=== PATIENT | female | born 1980 | race Caucasian/White ===

== ENCOUNTER → 2017-03-23 | Outpatient (CLI) | payer OTHER ==
--- NOTE | 2017-03-23 12:56 | RAD ---
Right knee, 2 views, 03/23/2017: History: Knee swelling No fracture or dislocation is identified. No significant arthritic change is seen. There is soft tissue prominence in the suprapatellar bursa region suggesting a large joint effusion. IMPRESSION: 1. No acute bony abnormality is detected. 2. Large right knee joint effusion.
--- NOTE | 2017-03-23 14:51 | RAD ---
Right lower extremity venous ultrasound, 03/23/2017 : History: Knee pain and swelling Duplex evaluation including grayscale, color flow and spectral Doppler analysis was performed. The femoral and popliteal veins show no filling defects to suggest DVT. The visualized deep veins in the right calf are unremarkable. There is a large 5.9 x 2.3 x 5.3 fluid collection present in the popliteal fossa. It contains several septations. The appearance is that of a Pendleton's cyst. A large fluid collection with septations was also noted anteriorly at the knee. This may represent joint fluid or a separate bursal fluid collection. IMPRESSION: 1. There is no sonographic evidence of deep vein thrombosis in the right lower extremity. 2. Large popliteal with an additional anterior fluid collection at the knee. MR scanning may be useful for further evaluation, if clinically indicated.
== END | disposition home or self-care (01) ==
LOC: US 11:16
PROVIDERS: ATTEND Nurse Practitioner Family
DX: M25.561 Pain in right knee (principal); M25.461 Effusion, right knee; M79.89 Other specified soft tissue disorders; M71.21 Synovial cyst of popliteal space [Baker], right knee
CPT/HCPCS: 73560; 93971

== ENCOUNTER 2018-08-27 21:52 | Emergency (ER) | payer OTHER ==
[~2018-08-27] VITALS: Ht 162.6 cm; Wt 59.0 kg
[2018-08-27 22:02] VITALS: BP 148/75
--- NOTE | 2018-08-27 22:21 | ED.ADGEN ---
Past History Past Medical History: Depression, Migraines, Other Alcohol Use: None Drug Use: None Adult General Chief Complaint Chief Complaint ".. I am having a really bad headache.. Like the migraines I used to have... " HPI HPI Patient is a 38 year old female who presents with above hx and complaints of migraine headache. Patient complains of nausea, photophobia, generalized arthralgia, patient has history of previous migraines. And this has a similar presentation Seems more severe. Patient denies any specific ill contacts or travel. No history of trauma. No history immunosuppression. No history of fevers. Review of Systems Review of Systems Constitutional: Denies fever or chills [] Eyes: Denies change in visual acuity, redness, or eye pain []Complaints of photophobia HENT: Denies nasal congestion or sore throat [] Respiratory: Denies cough or shortness of breath [] Cardiovascular: No additional information not addressed in HPI [] GI: Denies abdominal pain, vomiting, bloody stools or diarrhea [] Complaints of nausea. : Denies dysuria or hematuria [] Musculoskeletal: Denies back pain or joint pain [] Integument: Denies rash or skin lesions [] Neurologic: Complaints of headache. Denies, focal weakness or sensory changes [] Endocrine: Denies polyuria or polydipsia [] All other systems were reviewed and found to be within normal limits, except as documented in this note. Family History Family History Non-contributory Current Medications Current Medications Current Medications Medications (Trade) Dose Ordered Sig/Jessica Start Time Stop Time Status Last Admin Dose Admin Diphenhydramine HCl (Benadryl) 25 mg 1X ONCE 08/27/18 22:45 08/27/18 22:57 DC 08/27/18 22:53 25 MG Ketorolac Tromethamine (Toradol 30mg Vial) 30 mg 1X ONCE 08/27/18 23:30 08/27/18 23:58 DC 08/28/18 00:13 30 MG Lactated Ringer's 1,000 ml @ 1,000 mls/hr Q1H 08/27/18 22:35 08/27/18 23:34 DC 08/27/18 22:52 1,000 MLS/HR Ondansetron HCl (Zofran) 8 mg 1X ONCE 08/27/18 22:45 08/27/18 22:57 DC 08/27/18 22:45 8 MG Sodium Chloride 0 ml @ As Directed STK-MED ONCE 08/27/18 22:47 08/27/18 22:49 DC Sumatriptan Succinate (Imitrex) 6 mg 1X ONCE 08/27/18 23:30 08/27/18 23:31 DC 08/28/18 00:13 6 MG Valproic Acid (Depacon) 500 mg STK-MED ONCE 08/27/18 22:47 08/27/18 22:49 DC Valproic Acid 500 mg/Sodium Chloride 55 ml @ 500 mls/hr STAT 08/27/18 22:45 08/28/18 01:02 DC 08/27/18 22:55 500 MLS/HR Allergies Allergies Allergies Coded Allergies Type Severity Reaction Last Updated Verified Penicillins Allergy Unknown 08/27/18 Yes Sulfa (Sulfonamide Antibiotics) Allergy Unknown 08/27/18 Yes Physical Exam Physical Exam Constitutional: Well developed, well nourished, Moderate distress, non-toxic appearance. [] HENT: Normocephalic, atraumatic, bilateral external ears normal, oropharynx moist, no oral exudates, nose normal. [] Eyes: PERRLA, EOMI, conjunctiva normal, no discharge. [] Photophobia. Neck: Normal range of motion, no tenderness, supple, no stridor. [] Cardiovascular:Heart rate regular rhythm, no murmur [] Lungs & Thorax: Bilateral breath sounds clear to auscultation [] Abdomen: Bowel sounds normal, soft, no tenderness, no masses, no pulsatile masses. [] Skin: Warm, dry, no erythema, no rash. [] Back: No tenderness, no CVA tenderness. [] Extremities: No tenderness, no cyanosis, no clubbing, ROM intact, no edema. [] Neurologic: Alert and oriented X 3, normal motor function, normal sensory function, no focal deficits noted. DTR+ 2, patella, brachial. No drift. Tetryl Screen Operator equal. Ambulatory with out problems. Psychologic: Affect anxious, judgement normal, mood normal. [] Current Patient Data Vital Signs Vital Signs Date Time Temp Pulse Resp B/P (MAP) Pulse Ox O2 Delivery O2 Flow Rate FiO2 08/27/18 22:02 97.6 94 22 100 Room Air Lab Results Laboratory Tests Test 08/27/18 22:30 08/27/18 22:35 08/27/18 22:44 Urine Collection Type Unknown Urine Color Yellow Urine Clarity Clear Urine pH 6.0 Urine Specific [place] 1.025 Urine Protein Trace (NEG-TRACE) Urine Glucose (UA) Neg mg/dL (NEG) Urine Ketones (Stick) >=160 mg/dL (NEG) Urine Blood Small (NEG) Urine Nitrite Neg (NEG) Urine Bilirubin Neg (NEG) Urine Urobilinogen Dipstick 0.2 mg/dL (0.2 mg/dL) Urine Leukocyte Esterase Neg (NEG) Urine RBC Rare /HPF (0-2) Urine WBC Occ /HPF (0-4) Urine Squamous Epithelial Cells Occ /LPF Urine Bacteria 0 /HPF (0-FEW) Urine Opiates Screen Neg (NEG) Urine Methadone Screen Neg (NEG) Urine Barbiturates Neg (NEG) Urine Phencyclidine Screen Neg (NEG) Urine Amphetamine/Methamphetamine Neg (NEG) Urine Benzodiazepines Screen Neg (NEG) Urine Cocaine Screen Neg (NEG) Urine Cannabinoids Screen Neg (NEG) Urine Ethyl Alcohol Neg (NEG) White Blood Count 8.7 x10^3/uL (4.0-11.0) Red Blood Count 4.51 x10^6/uL (3.50-5.40) Hemoglobin 13.2 g/dL (12.0-15.5) Hematocrit 39.0 % (36.0-47.0) Mean Corpuscular Volume 87 fL (79-100) Mean Corpuscular Hemoglobin 29 pg (25-35) Mean Corpuscular Hemoglobin Concent 34 g/dL (31-37) Red Cell Distribution Width 12.7 % (11.5-14.5) Platelet Count 258 x10^3/uL (140-400) Neutrophils (%) (Auto) 83 % (31-73) H Lymphocytes (%) (Auto) 13 % (24-48) L Monocytes (%) (Auto) 3 % (0-9) Eosinophils (%) (Auto) 1 % (0-3) Basophils (%) (Auto) 0 % (0-3) Neutrophils # (Auto) 7.2 x10^3uL (1.8-7.7) Lymphocytes # (Auto) 1.1 x10^3/uL (1.0-4.8) Monocytes # (Auto) 0.3 x10^3/uL (0.0-1.1) Eosinophils # (Auto) 0.1 x10^3/uL (0.0-0.7) Basophils # (Auto) 0.0 x10^3/uL (0.0-0.2) Erythrocyte Sedimentation Rate 9 (0-25) Prothrombin Time 10.3 SEC (9.4-11.4) Prothrombin Time INR 1.0 (0.9-1.1) PTT 23 SEC (23-33) D-Dimer (Linda) 0.40 mg/L (0.00-0.50) Maternal Serum HCG Beta Subunit < 1 mIU/mL (0-6) Sodium Level 140 mmol/L (136-145) Potassium Level 3.6 mmol/L (3.5-5.1) Chloride Level 101 mmol/L (98-107) Carbon Dioxide Level 25 mmol/L (21-32) Anion Gap 14 (6-14) Blood Urea Nitrogen 14 mg/dL (7-20) Creatinine 0.7 mg/dL (0.6-1.0) Estimated GFR (Cockcroft-Gault) 93.6 Glucose Level 151 mg/dL (70-99) H Calcium Level 9.2 mg/dL (8.5-10.1) Magnesium Level 2.0 mg/dL (1.8-2.4) Total Bilirubin 0.4 mg/dL (0.2-1.0) Direct Bilirubin 0.1 mg/dL (0.0-0.2) Aspartate Amino Transferase (AST) 19 U/L (15-37) Alanine Aminotransferase (ALT) 28 U/L (14-59) Alkaline Phosphatase 69 U/L (46-116) Creatine Kinase 100 U/L (26-192) Troponin I Quantitative < 0.017 ng/mL (0-0.055) Total Protein 7.6 g/dL (6.4-8.2) Albumin 4.3 g/dL (3.4-5.0) POC Urine HCG, Qualitative hcg negative (Negative) EKG EKG My interpretation EKG shows a sinus rhythm at 83 bpm. There is some bimodal P- wave's. Slightly prolonged AL interval. No acute findings of STEMI.[] Radiology/Procedures Radiology/Procedures My interpretation of CT head shows no shift, mass, edema, bleed, or fracture. See formal report when available[] Course & Med Decision Making Course & Med Decision Making Pertinent Labs and Imaging studies reviewed. (See chart for details) Headache almost completely resolved at time of discharge. Pt. decline spinal tap. Risks and benefits discussed. Pt. given a prescription for Imitrex. 100 mg. Start at the beginning of headache. No more than 200 mg in a 24-hour. Follow -up primary care. Return if any concerns. Also receive a prescription for Zofran 8 mg up to 4 times a day for nausea. Patient to recheck glucose level upon follow-up with primary. [] Final Impression Final Impression 1. Headache[]-migraine Dragon Disclaimer Dragon Disclaimer This electronic medical record was generated, in whole or in part, using a voice recognition dictation system. Dragon Disclaimer This chart was dictated in whole or in part using Voice Recognition software in a busy, high-work load, and often noisy Emergency Department environment. It may contain unintended and wholly unrecognized errors or omissions. Discharge Summary Visit Information Final Diagnosis Problems Medical Problems: (1) Migraine Status: Acute Brief Hospital Course Allergies Allergies Coded Allergies Type Severity Reaction Last Updated Verified Penicillins Allergy Unknown 08/27/18 Yes Sulfa (Sulfonamide Antibiotics) Allergy Unknown 08/27/18 Yes Vital Signs Vital Signs Date Time Temp Pulse Resp B/P (MAP) Pulse Ox O2 Delivery O2 Flow Rate FiO2 08/27/18 22:02 97.6 94 22 100 Room Air Lab Results Laboratory Tests Test 08/27/18 22:30 08/27/18 22:35 08/27/18 22:44 Urine Collection Type Unknown Urine Color Yellow Urine Clarity Clear Urine pH 6.0 Urine Specific [place] 1.025 Urine Protein Trace (NEG-TRACE) Urine Glucose (UA) Neg mg/dL (NEG) Urine Ketones (Stick) >=160 mg/dL (NEG) Urine Blood Small (NEG) Urine Nitrite Neg (NEG) Urine Bilirubin Neg (NEG) Urine Urobilinogen Dipstick 0.2 mg/dL (0.2 mg/dL) Urine Leukocyte Esterase Neg (NEG) Urine RBC Rare /HPF (0-2) Urine WBC Occ /HPF (0-4) Urine Squamous Epithelial Cells Occ /LPF Urine Bacteria 0 /HPF (0-FEW) Urine Opiates Screen Neg (NEG) Urine Methadone Screen Neg (NEG) Urine Barbiturates Neg (NEG) Urine Phencyclidine Screen Neg (NEG) Urine Amphetamine/Methamphetamine Neg (NEG) Urine Benzodiazepines Screen Neg (NEG) Urine Cocaine Screen Neg (NEG) Urine Cannabinoids Screen Neg (NEG) Urine Ethyl Alcohol Neg (NEG) White Blood Count 8.7 x10^3/uL (4.0-11.0) Red Blood Count 4.51 x10^6/uL (3.50-5.40) Hemoglobin 13.2 g/dL (12.0-15.5) Hematocrit 39.0 % (36.0-47.0) Mean Corpuscular Volume 87 fL (79-100) Mean Corpuscular Hemoglobin 29 pg (25-35) Mean Corpuscular Hemoglobin Concent 34 g/dL (31-37) Red Cell Distribution Width 12.7 % (11.5-14.5) Platelet Count 258 x10^3/uL (140-400) Neutrophils (%) (Auto) 83 % (31-73) Lymphocytes (%) (Auto) 13 % (24-48) Monocytes (%) (Auto) 3 % (0-9) Eosinophils (%) (Auto) 1 % (0-3) Basophils (%) (Auto) 0 % (0-3) Neutrophils # (Auto) 7.2 x10^3uL (1.8-7.7) Lymphocytes # (Auto) 1.1 x10^3/uL (1.0-4.8) Monocytes # (Auto) 0.3 x10^3/uL (0.0-1.1) Eosinophils # (Auto) 0.1 x10^3/uL (0.0-0.7) Basophils # (Auto) 0.0 x10^3/uL (0.0-0.2) Erythrocyte Sedimentation Rate 9 (0-25) Prothrombin Time 10.3 SEC (9.4-11.4) Prothromb Time International Ratio 1.0 (0.9-1.1) Activated Partial Thromboplast Time 23 SEC (23-33) D-Dimer (Linda) 0.40 mg/L (0.00-0.50) Maternal Serum HCG Beta Subunit < 1 mIU/mL (0-6) Sodium Level 140 mmol/L (136-145) Potassium Level 3.6 mmol/L (3.5-5.1) Chloride Level 101 mmol/L (98-107) Carbon Dioxide Level 25 mmol/L (21-32) Anion Gap 14 (6-14) Blood Urea Nitrogen 14 mg/dL (7-20) Creatinine 0.7 mg/dL (0.6-1.0) Estimated GFR (Cockcroft-Gault) 93.6 Glucose Level 151 mg/dL (70-99) Calcium Level 9.2 mg/dL (8.5-10.1) Magnesium Level 2.0 mg/dL (1.8-2.4) Total Bilirubin 0.4 mg/dL (0.2-1.0) Direct Bilirubin 0.1 mg/dL (0.0-0.2) Aspartate Amino Transf (AST/SGOT) 19 U/L (15-37) Alanine Aminotransferase (ALT/SGPT) 28 U/L (14-59) Alkaline Phosphatase 69 U/L (46-116) Creatine Kinase 100 U/L (26-192) Troponin I Quantitative < 0.017 ng/mL (0-0.055) Total Protein 7.6 g/dL (6.4-8.2) Albumin 4.3 g/dL (3.4-5.0) Bedside Urine HCG, Qualitative hcg negative (Negative) Brief Hospital Course Ms. Nugent is a 38 old female who presented with complaints of Migraine. Headache resolved in ED. Discharge Information Condition at Discharge: Improved, Stable Disposition/Orders: D/C to Home Dischare Medications Current Medications Lactated Ringer's 1,000 ml @ 1,000 mls/hr Q1H IV Last administered on at 22:52; Admin Dose 1,000 MLS/HR; Start 08/27/18 at 22:35; Stop 08/27/18 at 23:34; Status DC Ondansetron HCl (Zofran) 8 mg 1X ONCE IV Last administered on 08/27/18at 22:45 ; Admin Dose 8 MG; Start 08/27/18 at 22:45; Stop 08/27/18 at 22:57; Status DC Diphenhydramine HCl (Benadryl) 25 mg 1X ONCE IVP Last administered on at 22:53; Admin Dose 25 MG; Start 08/27/18 at 22:45; Stop 08/27/18 at 22:57; Status DC Valproic Acid 500 mg/Sodium Chloride 55 ml @ 500 mls/hr STAT IV Last administered on 08/27/18at 22:55; Admin Dose 500 MLS/HR; Start 08/27/18 at 22:45 ; Stop 08/28/18 at 01:02; Status DC Valproic Acid (Depacon) 500 mg STK-MED ONCE IV ; Start 08/27/18 at 22:47; Stop 08/27/18 at 22:49; Status DC Sodium Chloride 0 ml @ As Directed STK-MED ONCE .ROUTE ; Start 08/27/18 at 22:47 ; Stop 08/27/18 at 22:49; Status DC Sumatriptan Succinate (Imitrex) 6 mg 1X ONCE SQ Last administered on at 00:13; Admin Dose 6 MG; Start 08/27/18 at 23:30; Stop 08/27/18 at 23:31; Status DC Ketorolac Tromethamine (Toradol 30mg Vial) 30 mg 1X ONCE IV Last administered on 08/28/18at 00:13; Admin Dose 30 MG; Start 08/27/18 at 23:30; Stop 08/27/18 at 23:58; Status DC Active Scripts Active Zofran (Ondansetron Hcl) 8 Mg Tablet 8 Mg PO QIDPRN PRN Imitrex (Sumatriptan Succinate) 100 Mg Tablet 100 Mg PO PRN 1X PRN KAMI LOPEZ MD Aug 27, 2018 22:21
[2018-08-27] MEDS ORDERED: IV RINGERS SOLUTION,LACTATED 1,000 ML IV SCH (22:35)
[2018-08-27] MEDS ORDERED: VALPROATE SODIUM 500 MG in IV NORMAL SALINE 50ML 50 ML IV SCH (22:45)
[2018-08-27] MEDS ORDERED: diphenhydrAMINE 50 MG/ML VIAL IVP ONE (22:45)
[2018-08-27] MEDS ORDERED: ONDANSETRON PF 4 MG/2 ML VIAL. IV ONE (22:45)
[2018-08-27] MEDS ORDERED: VALPROATE SODIUM 500 MG/5 ML VIAL IV ONE (22:47)
[2018-08-27] MEDS ORDERED: IV NORMAL SALINE 500ML 0 ML ONE (22:47)
[2018-08-27 22:53] LABS: BASO % 0 % (0-3); EOS # 0.1 x10^3/uL (0.0-0.7); EOS % 1 % (0-3); HEMOGLOBIN 13.2 g/dL (12.0-15.5); LYMPH # 1.1 x10^3/uL (1.0-4.8); LYMPH % 13 % (24-48); MEAN CORPUSCULAR HEMOGLOBIN 29 pg (25-35); MEAN CORPUSCULAR HGB CONC 34 g/dL (31-37); MEAN CORPUSCULAR VOLUME 87 fL (79-100); MONO # 0.3 x10^3/uL (0.0-1.1); MONO % 3 % (0-9); NEUT # 7.2 x10^3uL (1.8-7.7); NEUT % 83 % (31-73); PLATELET COUNT 258 x10^3/uL (140-400); RED BLOOD COUNT 4.51 x10^6/uL (3.50-5.40); RED CELL DISTRIBUTION WIDTH 12.7 % (11.5-14.5); WHITE BLOOD COUNT 8.7 x10^3/uL (4.0-11.0)
[2018-08-27 23:00] LABS: BARBITURATES NEG (NEG); BENZODIAZEPINES NEG (NEG); CANNABINOIDS NEG (NEG); COCAINE NEG (NEG); METHADONE NEG (NEG); OPIATES NEG (NEG); PHENCYCLIDINE NEG (NEG)
[2018-08-27 23:03] LABS: AMPHETAMINE/METHAMPHETAMINE NEG (NEG)
--- NOTE | 2018-08-27 23:03 | RAD ---
RS Compliance Statement: One or more of the following individualized dose reduction techniques were utilized for this examination: 1. Automated exposure control 2. Adjustment of the mA and/or kV according to patient size 3. Use of iterative reconstruction technique CT head without contrast 08/27/2018 10:47 PM INDICATION: Left-sided headache. Migraines. COMPARISON: None available TECHNIQUE: Multiple axial CT images of the head were obtained from skull base through the vertex without intravenous contrast. FINDINGS: Head: Ventricles, sulci and basal cisterns are within normal limits. There is no hydrocephalus. Mata-white matter differentiation is normal. There is no acute intracranial hemorrhage. There is no mass, mass effect or midline shift. Posterior fossa is normal in appearance. Visualized portions of the orbits are normal. Paranasal sinuses are well aerated. Mastoid air cells are well aerated. Scalp and calvaria are normal. IMPRESSION: No acute intracranial hemorrhage. Electronically signed by: Kym Torres MD (08/27/2018 10:58 PM) [facility]
[2018-08-27 23:06] LABS: ALBUMIN 4.3 g/dL (3.4-5.0); CALCIUM 9.2 mg/dL (8.5-10.1); CREATININE 0.7 mg/dL (0.6-1.0); DIRECT BILIRUBIN 0.1 mg/dL (0.0-0.2); GFR 93.6; POTASSIUM 3.6 mmol/L (3.5-5.1); TOTAL BILIRUBIN 0.4 mg/dL (0.2-1.0); TOTAL PROTEIN 7.6 g/dL (6.4-8.2)
[2018-08-27 23:08] LABS: BACTERIA,URINE 0 /HPF (0-FEW); BILIRUBIN,URINE NEG (NEG); CLARITY,URINE CLEAR; COLOR,URINE YELLOW; GLUCOSE,URINE NEG (NEG); NITRITE,URINE NEG (NEG); RBC,URINE RARE /HPF (0-2); SQUAMOUS EPITHELIAL CELL,UR OCC /LPF; UROBILINOGEN,URINE 0.2 mg/dL (0.2 mg/dL); WBC,URINE OCC /HPF (0-4)
[2018-08-27] MEDS: SUMAtriptan SUCC 6 MG/0.5 ML VIAL SQ ONE (23:30)
[2018-08-27] MEDS: KETOROLAC 30 MG/ML VIAL. IV ONE (23:30)
[2018-08-27 23:56] LABS: SEDIMENTATION RATE 9 (0-25)
[2018-08-28] MEDS: SUMAtriptan SUCC 6 MG/0.5 ML VIAL SQ ONE (00:13)
[2018-08-28] MEDS: KETOROLAC 30 MG/ML VIAL. IV ONE (00:13)
[2018-08-28] MEDS ORDERED: ONDA8TAB9 PO (00:54)
[2018-08-28] MEDS ORDERED: SUMA100T3 PO (00:54)
--- NOTE | 2018-08-28 06:19 | EKG ---
[address] [address] Test Date: 2018-08-27 Test Time: 23:06:25 Pat Name: FELIX VALLEJO Department: Room: Gender: F Commercial Construction Superintendent: NARENDRA : 1980 Requested By: KAMI LOPEZ Order Number: [id number] Reading MD: Measurements Intervals [place] Rate: 83 P: 4 CA: 180 QRS: 59 QRSD: 84 T: 51 QT: 404 QTc: 475 Interpretive Statements SINUS RHYTHM LEFT ATRIAL ABNORMALITY PROLONGED QT ABNORMAL ECG RI6.01 No previous ECG available for comparison
== END 2018-08-28 00:57 | disposition home or self-care (01) ==
LOC: ER 21:52
DX: G43.909 Migraine, unspecified, not intractable, without status migrainosus (principal); F32.9 Major depressive disorder, single episode, unspecified; Z88.0 Allergy status to penicillin; Z88.2 Allergy status to sulfonamides
CPT/HCPCS: 36415; 70450; 80048; 80076; 80307; 81001; 81025; 82550; 83735; 84443; 84484; 84702; 85025; 85379; 85610; 85651; 85730; 93005; 96365; 96372; 96375; 99284; J1200; J1885; J2405; J3030; J3490; J7120

== ENCOUNTER 2020-09-15 18:04 | Emergency (ER) | payer OTHER ==
[~2020-09-15] VITALS: Ht 162.6 cm; Wt 52.3 kg
[~2020-09-15 18:04] MED LIST: ONDA8TAB9 PO; SUMA100T3 PO
[2020-09-15 18:14] VITALS: BP 138/89
--- NOTE | 2020-09-15 18:32 | PHYS DOC ---
Past History Past Medical History: Anxiety, Depression, Migraines, Other (ADRIANA RODRÍGUEZ APRN) Past Surgical History: No Surgical History (ADRIANA RODRÍGUEZ APRN) Alcohol Use: None Drug Use: None (ADRIANA RODRÍGUEZ APRN) Adult General Chief Complaint Chief Complaint: MECHANICAL FALL HPI HPI Patient is a 40-year-old female patient who presents the ED today complaining of a head injury. Patient states 3 weeks ago she fell down at work and hit her head. Denies any loss of consciousness. She states today she was at [employer] and sitting with her daughter who is 7 years old, she states the daughter bumped her head on her jaw and this made her feel loopy. Denies any nausea, vomiting, confusion, loss of consciousness. (ADRIANA RODRÍGUEZ APRN) Review of Systems Review of Systems Constitutional: Denies fever or chills [] Eyes: Denies change in visual acuity, redness, or eye pain [] HENT: Denies nasal congestion or sore throat [] Respiratory: Denies cough or shortness of breath [] Cardiovascular: No additional information not addressed in HPI [] GI: Denies abdominal pain, nausea, vomiting, bloody stools or diarrhea [] : Denies dysuria or hematuria [] Musculoskeletal: Denies back pain or joint pain [] Integument: Denies rash or skin lesions [] Neurologic: Reports falling and hitting her head, reports feeling loopy today after being hit in the jaw by the daughter's head, denies headache, focal weakness or sensory changes [] All other systems were reviewed and found to be within normal limits, except as documented in this note. (ADRIANA RODRÍGUEZ APRN) Allergies Allergies Allergies Coded Allergies Type Severity Reaction Last Updated Verified Penicillins Allergy Unknown 08/27/18 Yes Sulfa (Sulfonamide Antibiotics) Allergy Unknown 08/27/18 Yes (ADRIANA RODRÍGUEZ APRN) Physical Exam Physical Exam Constitutional: Well developed, well nourished, no acute distress, non-toxic appearance. [] HENT: Normocephalic, atraumatic, bilateral external ears normal, oropharynx moist, no oral exudates, nose normal. [] Eyes: PERRLA, EOMI, conjunctiva normal, no discharge. [] Neck: Normal range of motion, no tenderness, supple, no stridor. [] Cardiovascular:Heart rate regular rhythm, no murmur [] Lungs & Thorax: Bilateral breath sounds clear to auscultation [] Abdomen: Bowel sounds normal, soft, no tenderness, no masses, no pulsatile masses. [] Skin: Warm, dry, no erythema, no rash. [] Back: No tenderness, no CVA tenderness. [] Extremities: No tenderness, no cyanosis, no clubbing, ROM intact, no edema. [] Neurologic: Alert and oriented X 3, normal motor function, normal sensory function, no focal deficits noted. Cranial nerves II through XII intact Psychologic: Affect normal, judgement normal, mood normal. [] (ADRIANA RODRÍGUEZ APRN) Current Patient Data Vital Signs Vital Signs Date Time Temp Pulse Resp B/P (MAP) Pulse Ox O2 Delivery O2 Flow Rate FiO2 09/15/20 18:14 79 18 138/89 (105) 98 (ADRIANA RODRÍGUEZ APRN) EKG EKG [] (ADRIANA RODRÍGUEZ APRN) Radiology/Procedures Radiology/Procedures [] (ADRIANA RODRÍGUEZ APRN) Heart Score Risk Factors: Risk Factors: DM, Current or recent (<one month) smoker, HTN, HLP, family history of CAD, obesity. Risk Scores: Risk Factors: DM, Current or recent (<one month) smoker, HTN, HLP, family history of CAD, obesity. (ADRIANA RODRÍGUEZ APRN) Course & Med Decision Making Course & Med Decision Making Pertinent Labs and Imaging studies reviewed. (See chart for details) This is a 40-year-old female patient presenting to the ED today complaining of falling down 3 weeks ago and hitting her head with no loss of consciousness. Today she was at [employer] the daughter who is 7 years old hit her jaw with her head. No loss of consciousness. Neurological exam is benign. Patient was reassured and discharged home. (ADRIANA RODRÍGUEZ APRN) Dragon Disclaimer Dragon Disclaimer This electronic medical record was generated, in whole or in part, using a voice recognition dictation system. (ADRIANA RODRÍGUEZ APRN) Departure Departure: Impression: Primary Impression: Facial contusion Additional Impressions: Head injury Fall Disposition: 01 DC HOME SELF CARE/HOMELESS Condition: STABLE Referrals: PCP,UNKNOWN (PCP) follow up with your doctor in 1-2 weeks Patient Instructions: Contusion, Head Injury, Adult, [id number] Additional Instructions: You were evaluated in the emergency room, your physical exam as well as neurological exam are negative. Please follow-up with your primary care doctor next week. Come back to the ED at any point you have worsening symptoms Attending Signature Attending Signature I have participated in the care of this patient and I have reviewed and agree with all pertinent clinical information above including history, exam, and recommendations. (KAMI LOPEZ MD) Problem Qualifiers Primary Impression: Facial contusion Encounter type: initial encounter Qualified Codes: S00.83XA - Contusion of other part of head, initial encounter Additional Impressions: Head injury Encounter type: initial encounter Qualified Codes: S09.90XA - Unspecified injury of head, initial encounter Fall Encounter type: initial encounter Qualified Codes: W19.XXXA - Unspecified fall, initial encounter ADRIANA RODRÍGUEZ APRN Sep 15, 2020 18:32 KAMI LOPEZ MD Sep 16, 2020 01:42
== END 2020-09-15 18:33 | disposition home or self-care (01) ==
LOC: ER 18:04
DX: S00.83XA Contusion of other part of head, initial encounter (principal); Z88.0 Allergy status to penicillin; Z88.2 Allergy status to sulfonamides; W18.09XA Striking against other object with subsequent fall, initial encounter; Y93.89 Activity, other specified; Y92.89 Other specified places as the place of occurrence of the external cause; Y99.8 Other external cause status
CPT/HCPCS: 99281-25

== ENCOUNTER → 2021-08-22 | Outpatient (CLI) | payer OTHER ==
--- NOTE | 2021-08-22 12:56 | RAD ---
3 views lumbar spine 08/22/2021 INDICATION: Low back pain. Sciatica. COMPARISON STUDY: None Discussion: No evidence of acute fracture or alignment abnormality are identified. Vertebral body hei ghts are maintained. There is degenerative disc space narrowing at L5-S1. No significant spondylolysi s or spondylolisthesis is identified. No acute soft tissue changes are identified. IMPRESSION: Mild degenerative changes at the lumbosacral junction without evidence of acute osseous o f normality Electronically signed by: Saad Mcfadden MD (08/22/2021 12:53 PM) [id number]
== END ==
LOC: RAD 10:31
PROVIDERS: ATTEND Family Medicine
DX: M47.817 Spondylosis without myelopathy or radiculopathy, lumbosacral region (principal); M48.07 Spinal stenosis, lumbosacral region; M54.30 Sciatica, unspecified side
CPT/HCPCS: 72100